=== PATIENT | female | born 1975 | race African-American/Black ===

== ENCOUNTER 2017-01-02 16:09 | Emergency (ER) | payer OTHER ==
[~2017-01-02] VITALS: Ht 162.6 cm; Wt 111.1 kg
[2017-01-02 16:42] LABS: HEMATOCRIT 30.1 % (36.0-46.0); MCH 15.3 PG (29.0-34.0); MCHC 26.9 G/DL (30.0-36.0); PLATELET COUNT 298 K/uL (156-360); RBC DIS.WIDTH-CV 23.7 % (11.8-14.6); RBC DIS.WIDTH-SD 44.4 % (39-53); RED BLOOD COUNT 5.28 M/uL (3.80-5.20); WHITE BLOOD COUNT 7.1 K/uL (4.1-10.2)
[2017-01-02 16:47] LABS: CHLORIDE 105 mEq/L (99-109); POTASSIUM 3.6 mEq/L (3.7-5.4); SODIUM 139 mEq/L (136-147)
[2017-01-02 16:49] LABS: GLUCOSE 94 mg/dL (70-99)
[2017-01-02 16:50] LABS: ANION GAP 12 MEQ/L (2-14)
[2017-01-02 16:51] LABS: TOTAL BILIRUBIN 0.2 mg/dL (0.0-1.0)
[2017-01-02 16:52] LABS: ALKALINE PHOSPHATASE 64 IU/L (3-129)
[2017-01-02 16:53] LABS: GFR ESTIMATE (CALCULATED) > 59 mL/min/
[2017-01-02 16:54] LABS: UREA NITROGEN (BUN) 12 mg/dL (9-23)
[2017-01-02 16:56] LABS: LIPASE 42 U/L (1.0-51.0)
[2017-01-02 17:02] LABS: QUANTITATIVE HCG < 4.0 MIU/ML
[2017-01-02 19:46] LABS: ADD MIUA? NO; BILIRUBIN NEGATIVE; BLOOD NEGATIVE; COLOR STRAW ((YELLOW)); GLUCOSE (STRIP) NEGATIVE; KETONES NEGATIVE; LEUKOCYTES NEGATIVE; NITRITE NEGATIVE; PROTEIN (STRIP) NEGATIVE; SPECIFIC GRAVITY 1.018 (1.000-1.030); UCUL ADDED? NO; UROBILINOGEN 0.2 MG/DL (0.2-1.0)
[2017-01-02] MEDS ORDERED: MOTRIN600 MG PO (20:17)
[2017-01-02] MEDS ORDERED: ULTRACET1 TABLET PO (20:17)
[2017-01-02 21:12] VITALS: BP 146/77
== END 2017-01-02 21:13 | disposition home or self-care (01) ==
LOC: EME 16:09
DX: K42.9 Umbilical hernia without obstruction or gangrene (principal); K43.9 Ventral hernia without obstruction or gangrene; D50.9 Iron deficiency anemia, unspecified
CPT/HCPCS: 74177; 76705; 80053; 81003; 83605; 83690; 84702; 85027; 99281; 99283; J7030

== ENCOUNTER → 2017-01-30 | Outpatient (CLI) | payer OTHER ==
[~2017-01-30] MED LIST: MOTRIN600 MG PO; ULTRACET1 TABLET PO
== END | disposition home or self-care (01) ==
LOC: CDC 14:18
DX: Z01.810 Encounter for preprocedural cardiovascular examination (principal); K43.9 Ventral hernia without obstruction or gangrene; R94.31 Abnormal electrocardiogram [ECG] [EKG]
CPT/HCPCS: 93000

== ENCOUNTER 2017-03-06 05:41 | Day surgery (SDC) | payer OTHER ==
[~2017-03-06] VITALS: Ht 162.6 cm; Wt 112.0 kg
[2017-03-06 06:36] VITALS: BP 121/59
[2017-03-06] MEDS ORDERED: MOTRIN600 MG PO (09:07)
[2017-03-06] MEDS ORDERED: NORCO 5/3251 TABLET PO (09:07)
[2017-03-06 09:54] VITALS: BP 145/67
[2017-03-06 11:00] VITALS: BP 128/58
[2017-03-06 13:09] VITALS: BP 127/60
[2017-03-09 11:05] LABS: INTERNAL CONTROL VALID? YES
== END 2017-03-06 13:20 | disposition home or self-care (01) ==
LOC: SDC 05:41
PROVIDERS: Surgery
PROC: 0WUF4JZ Supplement Abdominal Wall with Synthetic Substitute, Percutaneous Endoscopic Approach (ICD-10-PCS; principal; 2017-03-06)
DX: K43.6 Other and unspecified ventral hernia with obstruction, without gangrene (principal); D25.9 Leiomyoma of uterus, unspecified; N83.202 Unspecified ovarian cyst, left side; K66.0 Peritoneal adhesions (postprocedural) (postinfection); Z82.0 Family history of epilepsy and other diseases of the nervous system; Z83.3 Family history of diabetes mellitus; Z82.49 Family history of ischemic heart disease and other diseases of the circulatory system
CPT/HCPCS: 84703; C1781; J0131; J0330; J0690; J1100; J1170; J1885; J2250; J2405; J2710; J3010; S0020